=== PATIENT | female | born 2000 ===

== ENCOUNTER 2018-09-18 17:32 | Emergency (ER) | payer SELFPAY ==
[2018-09-18 18:11] VITALS: BP 111/74
--- NOTE | 2018-09-18 19:47 | UC ---
Knee Pain HPI - HPI Summary HPI Summary: 18 year old female with no PMH, no prior knee injuries, pin presents with L sided knee pain. patient was lifting cooler with another co-worker last night when he jerked the cooler, causing her to have a twisting motion/ get dragged with the cooler. SHe had immediate pain and noted some swelling afterwards, no bruising. Pain all lateral radiating postierior. Worse with movement, better with rest. Patient continues to work on knee and has not rested. no numbness , tingling. - History of Current Complaint Chief Complaint: UCLowerExtremity Stated Complaint: L KNEE INJURY Time Seen by Provider: 09/18/18 18:30 Hx Obtained From: Patient Hx Last Menstrual Period: 09/09/18 ?: No Onset/Duration: Sudden Onset, Lasting Days Severity Initially: Moderate Severity Currently: Moderate Pain Intensity: 3 Pain Scale Used: 0-10 Numeric Character: Aching, Throbbing Aggravating Factor(s): Movement, Weight Bearing, Prolonged Standing, Stairs Alleviating Factor(s): Rest Associated Signs And Symptoms: Positive: Swelling Able to Bear Weight: Yes - painful - Allergies/Home Medications Allergies/Adverse Reactions: Allergies Allergy/AdvReac Type Severity Reaction Status Date / Time No Known Allergies Allergy Verified 09/18/18 18:11 Home Medications: Home Medications Ibuprofen TAB* [Advil TAB*] 400 mg PO ONCE PRN 09/18/18 [History Confirmed 09/18] PMH/Surg Hx/FS Hx/Imm Hx Previously Healthy: Yes - Surgical History Surgical History: None - Social History Alcohol Use: None Substance Use Type: None Smoking Status (MU): Never Smoked Tobacco Review of Systems All Other Systems Reviewed And Are Negative: Yes Constitutional: Positive: Negative Musculoskeletal: Positive: Arthralgia, Decreased ROM, Edema, Myalgia Is Patient Immunocompromised?: No Physical Exam Triage Information Reviewed: Yes Appearance: Well-Appearing, No Pain Distress, Well-Nourished Vital Signs: Initial Vital Signs Temp 98.8 F 09/18/18 18:09 Pulse 80 09/18/18 18:09 Resp 16 09/18/18 18:09 BP 111/74 09/18/18 18:09 Pulse Ox 98 09/18/18 18:09 Eyes: Positive: Conjunctiva Clear Musculoskeletal: Positive: Strength Intact - strength + to R knee, however pain with flex and extension. Full ROM iwth pain at term endpoints. + mcmurrays, laterally. + LJL tenderness, no lax, tenderness with MCL, LCL stressing., ROM Intact, Edema @ - L knee laterally with mild joint effusion noted Neurological: Positive: Alert, Muscle Tone Normal Psychological Exam: Normal Skin: Positive: Other - Skin intact, no op[en wounds sores. Knee Pain Course/Dx - Course Course Of Treatment: Possible meniscal tear, no radiographs needed, follow up with ortho if no improvement, patient has brace, RICE, motrin/ naproxen/ NSAIDs x 5 days. - Differential Dx/Diagnosis Provider Diagnosis: Acute meniscal tear of left knee Discharge - Sign-Out/Discharge Documenting (check all that apply): Patient Departure All imaging exams completed and their final reports reviewed: No Studies - Discharge Plan Condition: Fair Disposition: HOME Patient Education Materials: Knee Pain (ED), R.I.C.E. Treatment (ED) Forms: *Work Release Referrals: Barber Belcher MD [Medical Doctor] - No Primary Care Phys,NOPCP [Primary Care Provider] - Additional Instructions: Possible Meniscal tear - Ice, Elevate, brace as needed - Follow up with orthopedics if no improvement within 2-3 days - Motrin 400mg every 6 hours OR Naproxen/ Alleve every 12 hours x 5 days - Rest as much as possible - Rest the knee. Avoid positions and activities that place excessive pressure on the knee joint until pain and swelling resolve. Such activities include: squatting, kneeling, twisting and pivoting, repetitive bending (eg, stairs, getting out of a seated position, clutch and pedal pushing), jogging, dancing, and swimming using the frog or whip kick. - Apply ice to the knee for 15 minutes every four to six hours, while keeping the leg elevated. - Billing Disposition and Condition Condition: FAIR Disposition: Home - Attestation Statements Provider Attestation: Patient not seen by me. I was available for consult.
== END 2018-09-18 18:51 | disposition home or self-care (01) ==
LOC: UCEAST 17:32
DX: S83.207A Unspecified tear of unspecified meniscus, current injury, left knee, initial encounter (principal); X50.9XXA Other and unspecified overexertion or strenuous movements or postures, initial encounter
CPT/HCPCS: 99202; G0463

== ENCOUNTER 2018-11-16 09:47 | Day surgery (SDC) | payer OTHER ==
--- NOTE | 2018-11-11 19:40 | HP ---
PREOPERATIVE HISTORY AND PHYSICAL: DATE OF SURGERY: 11/16/18 [facility] ATTENDING SURGEON: Dr. Sumeet Cole.* (DICTATED BY TRACIE TROY) PROCEDURE: Left knee arthroscopy with possible meniscus repair. CHIEF COMPLAINT: Left knee pain. HISTORY OF PRESENT ILLNESS: Sasha is a 18-year-old female who presents to the clinic for left knee pain due to a lateral meniscus tear. She has failed conservative measures and has, therefore, agreed to undergo a left knee arthroscopy with possible meniscus repair with Dr. Cole on 11/16/18. PAST MEDICAL HISTORY: Denies current problems. PAST SURGICAL HISTORY: No prior surgeries. MEDICATIONS: Ibuprofen 200 mg 2 to 3 tablets every 6 hours as needed for pain. ALLERGIES: No known drug allergies. FAMILY HISTORY: Positive for diabetes, hypertension, and CVA. Denies family history of DVT or PE. SOCIAL HISTORY: She lives with her roommate. She denies tobacco use. She reports occasional alcohol consumption. She is right-hand dominant. REVIEW OF SYSTEMS: A 14-point review of systems was reviewed with the patient. Positive for current complaint; otherwise, negative. Denies fever, chills, chest pain, shortness of breath, history of bleeding disorder, history of DVT or PE. PHYSICAL EXAMINATION GENERAL: A 18-year-old well-developed, well-nourished female, in no acute distress. VITAL SIGNS: Height 66, weight 131. Blood pressure 112/74, respiratory rate 18. BMI 21.1. HEENT: Normocephalic, atraumatic. PERRLA. Throat clear. NECK: Supple. PULMONARY: Lungs are clear to auscultation bilaterally. No wheezing, rhonchi, or rales. CARDIO: Regular rate and rhythm. S1, S2. No murmurs, gallops, or rubs. No edema. ABDOMEN: Positive bowel sounds. Soft, nontender. NEUROLOGIC: Alert and oriented x3. Cranial nerves grossly intact. MUSCULOSKELETAL: Left Lower Extremity: Skin is intact. No warmth or erythema. Mild effusion, tenderness over the lateral joint line, loss of range of motion 5 to 85. Stable to varus and valgus stress. Stable Raymond's. Negative posterior drawer. Calf is soft and nontender. +5/5 strength to ankle dorsiflexion and plantar flexion. +2 DP pulse. Sensation intact to light touch distally. DIAGNOSTIC STUDIES: MRI revealed a radial split tear of the lateral meniscus. PLAN: The patient is scheduled to undergo a left knee arthroscopy with possible meniscus repair with Dr. Cole on 11/16/18. Percocet will be used for postop pain management. She will follow up in 10 to 14 days postop for followup and suture removal. TRACIE TROY [id number]/[facility] #: [id number] MTDD
[~2018-11-16 09:47] MED LIST: Buffered Lidocaine 1% SYRIN* 1 ML/SYRINGE INTRADERM ONE; Lactated Ringers 1000 ML Bag* 1,000 ML IV SCH
[2018-11-16] MEDS ORDERED: ceFAZolin 2 GM in NS PREMIX(*) 2 GM/100 ML BAG IVPB ONE (10:08)
[2018-11-16] MEDS ORDERED: Propofol* 10 MG/ML 20 ML BTL ONE (10:49)
[2018-11-16] MEDS ORDERED: Lidocaine 2% PF * 5 ML VIAL ONE (10:49)
[2018-11-16] MEDS ORDERED: Lidocaine 1% w EPI 1:200,000* 30 ML VIAL ONE (10:50)
[2018-11-16] MEDS ORDERED: fentaNYL* 50 MCG/ML 2 ML VIAL (100 MCG VIAL) ONE (10:50)
[2018-11-16] MEDS ORDERED: Midazolam* 1 MG/ML 2 ML VIAL (2 MG) ONE (10:50)
[2018-11-16] MEDS ORDERED: Ropivacaine 0.2% * 2 MG/ML VIAL ONE (10:52)
[2018-11-16] MEDS ORDERED: Neostigmine Methylsulfate* 3 MG/3 ML SYRINGE ONE (10:54)
[2018-11-16] MEDS ORDERED: Glycopyrrolate IV* 0.2 MG/ML 1 ML VIAL ONE (10:54)
[2018-11-16] MEDS ORDERED: Ondansetron INJ* 2 MG/ML VIAL ONE (11:56)
[2018-11-16] MEDS ORDERED: Metoclopramide IV* 5 MG/ML 2 ML VIAL ONE (11:56)
[2018-11-16] MEDS ORDERED: Dexamethasone IV* 4 MG/ML 1 ML (4 MG) ONE (11:56)
[2018-11-16] MEDS ORDERED: Ketorolac INJ* 30 MG/ML 1 ML VIAL ONE (11:56)
[2018-11-16] MEDS ORDERED: Acetaminophen TAB* 325 MG PO PRN (12:36)
[2018-11-16] MEDS ORDERED: Naloxone* 0.4 MG/ML 1 ML VIAL IV PRN (12:36)
[2018-11-16] MEDS ORDERED: oxyCODONE TAB* 5 MG TAB PO PRN (12:36)
[2018-11-16] MEDS ORDERED: fentaNYL* 50 MCG/ML 2 ML VIAL (100 MCG VIAL) IV PRN (12:36)
[2018-11-16] MEDS ORDERED: oxyCODONE/Acetamin 5/325 MG* TAB ONE (13:23)
[2018-11-16 13:33] VITALS: BP 118/69
--- NOTE | 2018-11-16 15:26 | OP ---
CC: PCP OPERATIVE REPORT: DATE OF OPERATION: 11/16/18. DATE OF : [birth year]. SURGEON: Sumeet Cole MD. MERCHANDISING DIRECTOR: TRACIE Remy. An assistant county attorney was needed during the repair portion of the case. ANESTHESIOLOGIST: Dr. Pandey. ANESTHESIA: General. PRE-OP DIAGNOSIS: Left knee lateral meniscus tear. POST-OP DIAGNOSIS: Left knee lateral meniscus tear. OPERATIVE PROCEDURE: Left knee arthroscopy with left knee lateral meniscus repair. COMPLICATIONS: None. ESTIMATED BLOOD LOSS: Minimal. TOURNIQUET TIME: Zero minutes. IMPLANTS USED: One Fast-Fix. INDICATIONS: Sasha Martínez is a 18-year-old female who sustained injury to her knee on 10/07/18 wh en she tripped and fell on the knee. She had a lot of pain and swelling. She was diagnosed with a m eniscus tear. She had locking and loss of motion of the knee. The MRI was done. The report demonst rated no obvious tears, but there was an obvious radial split tear, possible peripheral tear. The ri sks and benefits of surgery were discussed at length. The risks include, but not limited to, bleedin g; infection; damage to nerve, vessels, surrounding structures; wound nonhealing; persistent pain; n eed for further surgery; scarring; stiffness; incomplete relief of symptoms; risk of anesthesia. DESCRIPTION OF PROCEDURE: The patient was greeted in the preoperative area by the attending surgeon. Correct extremity was marked and consent was confirmed. The patient was brought back to operating suite, where she was placed in supine position on the operating table. She then underwent general an esthesia and endotracheal intubation. An unsterile tourniquet was placed high in the proximal thigh. The lateral post was positioned. The left leg was then prepped and draped in the usual sterile fas hion beginning with chlorhexidine soap, scrub, and alcohol wipe, and a final prep of ChloraPrep. After appropriate surgical pause indicating side, site, procedure, and administration of antibiotics, the knee was intraarticularly injected with 1% lidocaine with epi. The anterolateral portal was mad e using an 11 blade. The scope was introduced into the joint. Joint was examined. There was abunda nt synovitis anteriorly, medially, and laterally. The ACL and PCL were intact. The ACL was intact, pretty diminutive. The patellofemoral joint had grade 0 to 1 changes. Medial and lateral gutters we re intact without any loose debris. The medial meniscus was intact. Medial femoral condyle had grad e 0 to 1 changes, although periphery had some mild fraying with a small area of grade 1 change. The knee was placed in figure-four position and lateral compartment was examined. The lateral femoral co ndyle had grade 0 to 1 changes. Lateral plateau had grade 1 changes, which was mild fissuring. Ther e was evidence of a radial split tear in the white-white zone as well as subluxation of the meniscus. The root was intact. There was an undersurface tear. The probe was then used to probe the meniscus and the very posterior aspect had tearing, was unstable had more shuck than it should have had, but it was attached laterally. Thus the shaver and biters were then used to debride the radial split por tion of this tear and then again the meniscus was examined again. The decision was made to repair th is. The rasp was used to first rough up the capsule and the meniscus. Once this was done, one Fast- Fix was placed posteriorly. This was placed on the inferior portion of the meniscus to help keep it in the proper position. This was secured with excellent purchase. This was well positioned and this helped stabilize the meniscus. Decision was made not to overtighten the meniscus and that was it. Attention was directed to notch and a Ashley awl was then used to gently do a bone marrow aspiration in the notch to help supplement with healing. Final images were obtained. The wounds were copiousl y irrigated with sterile saline. The portals were closed with 3-0 nylon. Sterile dressings were appl ied. She was placed into a hinged knee brace. Her range of motion was 0 to 70 degrees locked at 0 d egrees. She was awoken from anesthesia and transferred to PACU in stable condition. POSTOPERATIVE PLAN: She will be nonweightbearing. She will be in the brace for 4 weeks at least, be ing nonweightbearing range of motion 0 to 70 degrees. She will be discharged on pain medications. D VT prophylaxis was considered but deferred due to no previous personal or family history. I will see the patient back in 10 to 14 days. [id number]/[facility] #: [id number]
== END 2018-11-16 13:50 | disposition home or self-care (01) ==
LOC: OREAST 09:47
PROVIDERS: ATTEND Orthopaedic Surgery
DX: S83.282A Other tear of lateral meniscus, current injury, left knee, initial encounter (principal); W01.0XXA Fall on same level from slipping, tripping and stumbling without subsequent striking against object, initial encounter; Y92.9 Unspecified place or not applicable; Y99.0 Civilian activity done for income or pay
CPT/HCPCS: 81025; A9270-GY; J0690; J1100; J1885; J2001; J2250; J2405; J2704; J2710; J2765; J2795; J3010